=== PATIENT | female | born 1985 | race African-American/Black ===

== ENCOUNTER → 2016-10-20 | Outpatient (CLI) | payer OTHER ==
[~2016-10-20] MED LIST: PRENTAB55 PO
[2016-10-20 13:03] LABS: PROGESTERONE 42.7 NG/ML
== END ==
LOC: M WUC 08:46
PROVIDERS: ATTEND Obstetrics & Gynecology Reproductive Endocrinology
DX: Z31.49 Encounter for other procreative investigation and testing (principal)

== ENCOUNTER → 2017-01-11 | Outpatient (CLI) | payer OTHER | LOC: M WUC 10:24 | PROVIDERS: ATTEND Obstetrics & Gynecology Reproductive Endocrinology | DX: Z32.01 Encounter for pregnancy test, result positive (principal) ==

== ENCOUNTER 2017-05-15 17:32 | Emergency (ER) | payer OTHER ==
[2017-05-15 19:40] LABS: HEMATOCRIT 42.4 % (36.0-47.0); HEMOGLOBIN 13.5 g/dl (12.0-15.5); MEAN CORPUSCULAR HEMOGLOBIN 25.6 pg (27.0-33.0); MEAN CORPUSCULAR HGB CONC 31.8 g/dl (32.0-36.5); MEAN CORPUSCULAR VOLUME 80.5 fl (80.0-96.0); PLATELET COUNT, AUTOMATED 299 10^3/uL (150-450); RED BLOOD COUNT 5.27 10^6/uL (4.00-5.40); RED CELL DISTRIBUTION WIDTH 14.8 % (11.5-14.5); WHITE BLOOD COUNT 16.5 10^3/uL (4.0-10.0)
[2017-05-15 19:45] LABS: ADD MANUAL DIFFER YES; DIFF SLIDE NUMBER 157; POSITIVE DIFF POS FLAG
[2017-05-15 20:01] LABS: HCG, SERUM QUANTITATIVE 16518 MIU/ML
[2017-05-15 20:30] LABS: ATYPICAL LYMPH 1 % (0-5); LYMPHOCYTES 35 % (16-52); MONOCYTES 4 % (0-8); NEUTROPHILS 60 % (35-75); PLATELET ESTIMATE NORMAL (NORMAL)
== END 2017-05-15 21:53 | disposition home or self-care (01) ==
LOC: M ED 17:32
DX: O20.9 Hemorrhage in early pregnancy, unspecified (principal); Z3A.01 Less than 8 weeks gestation of pregnancy; Z87.891 Personal history of nicotine dependence
CPT/HCPCS: 76801

== ENCOUNTER → 2017-08-19 | Outpatient (CLI) | payer OTHER | LOC: M SMT 15:09 | DX: Z34.82 Encounter for supervision of other normal pregnancy, second trimester (principal); Z36.89 Encounter for other specified antenatal screening | CPT/HCPCS: 36415 ==

== ENCOUNTER → 2017-08-20 | Outpatient (CLI) | payer OTHER | LOC: M RAD 15:57 | DX: Z34.82 Encounter for supervision of other normal pregnancy, second trimester (principal) | CPT/HCPCS: 76811 ==

== ENCOUNTER → 2017-10-27 | Outpatient (CLI) | payer OTHER | LOC: M RAD 10:14 | DX: Z34.82 Encounter for supervision of other normal pregnancy, second trimester (principal); Z3A.29 29 weeks gestation of pregnancy | CPT/HCPCS: 76816 ==

== ENCOUNTER → 2017-11-16 | Outpatient (CLI) | payer OTHER ==
[2017-11-16 17:29] LABS: ESTIMATED AVERAGE GLUCOSE 212 MG/DL (60-110)
== END ==
LOC: M SMT 14:18
DX: O24.313 Unspecified pre-existing diabetes mellitus in pregnancy, third trimester (principal)
CPT/HCPCS: 83036

== ENCOUNTER → 2017-11-17 | Outpatient (CLI) | payer OTHER | LOC: M RAD 13:43 | DX: Z34.82 Encounter for supervision of other normal pregnancy, second trimester (principal) ==

== ENCOUNTER → 2017-12-07 | Outpatient (REF) | payer OTHER | LOC: M LAB REF 17:04 | DX: Z34.83 Encounter for supervision of other normal pregnancy, third trimester (principal) ==

== ENCOUNTER → 2017-12-15 | Outpatient (CLI) | payer OTHER | LOC: M RAD 14:50 | DX: O24.313 Unspecified pre-existing diabetes mellitus in pregnancy, third trimester (principal) ==

== ENCOUNTER 2017-12-21 05:47 | Inpatient (IN) | payer OTHER ==
[2017-12-21 06:55] LABS: BEDSIDE GLUCOSE 179 MG/DL (70-105)
[2017-12-21 07:04] LABS: HEMATOCRIT 39.3 % (36.0-47.0); HEMOGLOBIN 12.6 g/dl (12.0-15.5); MEAN CORPUSCULAR HEMOGLOBIN 26.6 pg (27.0-33.0); MEAN CORPUSCULAR HGB CONC 32.1 g/dl (32.0-36.5); MEAN CORPUSCULAR VOLUME 83.1 fl (80.0-96.0); PLATELET COUNT, AUTOMATED 258 10^3/uL (150-450); RED BLOOD COUNT 4.73 10^6/uL (4.00-5.40); RED CELL DISTRIBUTION WIDTH 13.7 % (11.5-14.5); WHITE BLOOD COUNT 12.5 10^3/uL (4.0-10.0)
[2017-12-21] MEDS: PENICILLIN G POTASSIUM IV 5 MU in D5W MINI-BAG PLUS 100 ML IV (07:11)
[2017-12-21] MEDS: LR 1,000 ML IV (07:11)
[2017-12-21 07:26] LABS: GLUCOSE,RANDOM 190 MG/DL (LESS THAN 200)
[2017-12-21] MEDS: LIDOCAINE 1% MDV 20ML VIAL INFIL (07:42)
[2017-12-21] MEDS ORDERED: IBUPROFEN 800 MG TAB PO (08:30)
[2017-12-21] MEDS ORDERED: OXYTOCIN DRIP 30 UNITS in APPROPRIATE DILUENT 1 EA IV (08:30)
[2017-12-21] MEDS ORDERED: RHOGAM 300 MCG (1500 IU) INJ (J2790) IM (08:30)
[2017-12-21] MEDS ORDERED: MEASLES,MUMPS,RUBELLA VACCINE INJ (MMR-II) (90707) SC (08:30)
[2017-12-21] MEDS ORDERED: METHYLERGONOVINE MALEATE 0.2 MG TAB PO (08:30)
[2017-12-21] MEDS ORDERED: ACETAMINOPHEN 500 MG TAB PO (08:30)
[2017-12-21] MEDS ORDERED: DOCUSATE SODIUM 100 MG CAP PO (08:30)
[2017-12-21] MEDS ORDERED: GLUCAGON FOR INJ 1 MG VIAL (J1610) SC (08:30)
[2017-12-21] MEDS ORDERED: GLUCOSE 4 GM CHEW TABLET PO (08:30)
[2017-12-21] MEDS ORDERED: DEXTROSE 50% 50 ML SYRINGE IV (08:30)
[2017-12-21] MEDS: OXYTOCIN INJ 10 UNITS/ML VIAL (J2590) IV (08:45)
[2017-12-21 09:10] LABS: BEDSIDE GLUCOSE 229 MG/DL (70-105)
[2017-12-21] MEDS: HumaLOG INSULIN (NovoLOG) PER UNIT SC ×4 (09:42→23:23)
[2017-12-21] MEDS: PRENATAL VITAMINS CHEWABLE TABLET PO (09:54)
[2017-12-21] MEDS ORDERED: PENICILLIN G POTASSIUM IV 2.5 MU in APPROPRIATE DILUENT 1 EA IV (11:00)
[2017-12-21 12:48] LABS: BEDSIDE GLUCOSE 268 MG/DL (70-105)
[2017-12-21 17:26] LABS: BEDSIDE GLUCOSE 223 MG/DL (70-105)
[2017-12-21] MEDS: HumuLIN N INSULIN (NovoLIN N) PER UNIT SC (18:54)
[2017-12-21] MEDS: HumuLIN R (REGULAR) INSULIN (NovoLIN R) **100U/ML** PER UNIT SC (18:54)
[2017-12-21 22:25] LABS: BEDSIDE GLUCOSE 220 MG/DL (70-105)
[2017-12-22 07:39] LABS: BEDSIDE GLUCOSE 129 MG/DL (70-105)
[2017-12-22] MEDS: HumaLOG INSULIN (NovoLOG) PER UNIT SC ×3 (07:47→18:30)
[2017-12-22] MEDS ORDERED: HumuLIN R (REGULAR) INSULIN (NovoLIN R) **100U/ML** PER UNIT SC ×2 (08:29→08:30)
[2017-12-22] MEDS: HumuLIN N INSULIN (NovoLIN N) PER UNIT SC ×2 (08:53→18:31)
[2017-12-22] MEDS: PRENATAL VITAMINS CHEWABLE TABLET PO (08:54)
[2017-12-22] MEDS: HumuLIN R (REGULAR) INSULIN (NovoLIN R) **100U/ML** PER UNIT SC ×2 (08:54→18:31)
[2017-12-22 14:58] LABS: BEDSIDE GLUCOSE 96 MG/DL (70-105)
[2017-12-22 18:26] LABS: BEDSIDE GLUCOSE 225 MG/DL (70-105)
[2017-12-22] MEDS: DIBUCAINE 1% OINTMENT 30GM TOP (19:50)
[2017-12-22 20:32] LABS: BEDSIDE GLUCOSE 183 MG/DL (70-105)
[2017-12-23 07:26] LABS: BEDSIDE GLUCOSE 151 MG/DL (70-105)
[2017-12-23] MEDS: HumaLOG INSULIN (NovoLOG) PER UNIT SC ×2 (09:07→13:54)
[2017-12-23] MEDS: HumuLIN N INSULIN (NovoLIN N) PER UNIT SC (09:09)
[2017-12-23] MEDS: PRENATAL VITAMINS CHEWABLE TABLET PO (09:11)
[2017-12-23] MEDS: HumuLIN R (REGULAR) INSULIN (NovoLIN R) **100U/ML** PER UNIT SC (09:11)
[2017-12-23 12:40] LABS: BEDSIDE GLUCOSE 166 MG/DL (70-105)
== END 2017-12-23 15:50 | disposition home or self-care (01) | DRG 807 ==
LOC: M LDO 05:47 → M LDI 06:27 → M OBS 11:10
PROVIDERS: Specialist
PROC: 10E0XZZ Delivery of Products of Conception, External Approach (ICD-10-PCS; principal; 2017-12-21)
PROC: 0HQ9XZZ Repair Perineum Skin, External Approach (ICD-10-PCS; 2017-12-21)
DX: O24.424 Gestational diabetes mellitus in childbirth, insulin controlled (principal); Z37.0 Single live birth; Z3A.37 37 weeks gestation of pregnancy; O70.0 First degree perineal laceration during delivery